=== PATIENT | female | born 1990 | race Caucasian/White ===

== ENCOUNTER 2023-07-27 11:34 | Inpatient (IN) | payer MEDICAID, OTHER ==
[~2023-07-27] VITALS: Ht 167.6 cm; Wt 59.4 kg
[2023-07-27 12:05] LABS: PH,URINE DRUG SCREEN 5.5 (5.0-8.0)
[2023-07-27 12:11] LABS: ALCOHOL, URINE DRUG SCREEN POSITIVE (NEGATIVE); AMPHET/METH SCREEN,URINE POSITIVE (NEGATIVE); BARBITURATE SCREEN, URINE NEGATIVE (NEGATIVE); BENZODIAZEPINES SCREEN,URINE NEGATIVE (NEGATIVE); CANNABINOID SCREEN,URINE POSITIVE (NEGATIVE); COCAINE SCREEN,URINE NEGATIVE (NEGATIVE); METHADONE SCREEN, URINE NEGATIVE (NEGATIVE); OPIATE SCREEN,URINE NEGATIVE (NEGATIVE); PHENCYCLIDINE SCREEN,URINE NEGATIVE (NEGATIVE)
[2023-07-27 12:36] LABS: BASOPHILS % (AUTO) 0.6 % (0.0-2.0); EOSINOPHILS % (AUTO) 0.7 % (1.0-6.0); HEMATOCRIT 35.1 % (36-46); HEMOGLOBIN 11.4 g/dL (12.0-16.0); LYMPHOCYTES # (AUTO) 2.3 K/uL (1.0-4.8); LYMPHOCYTES % (AUTO) 39.9 % (22.0-44.0); MEAN CORPUSCULAR HEMOGLOBIN 30.1 pg (26.0-34.0); MEAN CORPUSCULAR HGB CONC 32.5 G/dL (31.0-37.0); MEAN CORPUSCULAR VOLUME 93 fL (80-100); MONOCYTES # (AUTO) 0.3 K/uL (0.1-1.0); MONOCYTES % (AUTO) 5.6 % (2.0-9.0); NEUTROPHILS # (AUTO) 3.1 K/uL (1.8-7.7); NEUTROPHILS % (AUTO) 53.2 % (40.0-70.0); PLATELET COUNT (AUTO) 251 K/uL (150-450); RED CELL DISTRIBUTION WIDTH 14.4 % (11.5-14.5); WHITE BLOOD COUNT (AUTO) 5.8 K/uL (4.5-11.0)
[2023-07-27 12:43] LABS: ANION GAP 10 mmol/L (8-16); CALCIUM, TOTAL 8.4 mg/dL (8.8-10.5); CARBON DIOXIDE 26 mmol/L (22-29); CHLORIDE 106 mmol/L (98-107); CREATININE 0.62 mg/dL (0.60-1.30); GLOMERULAR FILTR. RATE CALC > 60 mL/min (>60); GLUCOSE,RANDOM 86 mg/dL (70-110); POTASSIUM 3.7 mmol/L (3.5-5.1); SODIUM SERUM 142 mmol/L (136-145); UREA NITROGEN, BLOOD 17 mg/dL (7-18)
[2023-07-27 12:49] LABS: ALANINE AMINOTRANSFERASE 19 U/L (12-78); ALBUMIN 3.2 g/dL (3.4-5.0); ALKALINE PHOSPHATASE 61 U/L (46-116); ASPARTATE AMINOTRANSFERASE 44 U/L (15-37); BILIRUBIN,TOTAL 0.2 mg/dL (0.1-1.0); TOTAL PROTEIN, SERUM 6.4 g/dL (6.4-8.2)
[2023-07-27 12:51] LABS: ALCOHOL, BLOOD (SERUM) 57 mg/dL (0-10)
[2023-07-27 18:02] LABS: COVID AG,FIA SOURCE NASAL SWAB
[2023-07-27 18:17] LABS: SARS-COV2 (COVID) ANTIGEN,FIA Negative (Negative)
[2023-07-28 01:37] VITALS: BP 103/66; PULSE 98; RESP 18; TEMP 97.5; O2SAT 98
[2023-07-28 08:10] VITALS: RESP 16
[2023-07-28] MEDS ORDERED: ChlorproMAZINE HCL 50 MG/2 ML AMP ONE (12:42)
[2023-07-28] MEDS ORDERED: LORazepam 2 MG/ML VIAL ONE (12:42)
[2023-07-28] MEDS ORDERED: DiphenhydrAMINE HCL 50 MG/ML VIAL IM ONE (12:45)
[2023-07-28] MEDS ORDERED: ChlorproMAZINE HCL 50 MG/2 ML AMP IM ONE (12:45)
[2023-07-28] MEDS ORDERED: LORazepam 2 MG/ML VIAL IM ONE (12:45)
[2023-07-28] MEDS ORDERED: DOCUSATE SODIUM 100 MG CAPSULE PO PRN (16:15)
[2023-07-28] MEDS ORDERED: GuaiFENesin/D-METHORPHAN [SUGAR-FREE] 200-20MG/10 ML SYRUP UDCUP PO PRN (16:15)
[2023-07-28] MEDS ORDERED: PETROLATUM,WHITE 28 GM JELLY TP PRN (16:15)
[2023-07-28] MEDS ORDERED: LOPERAMIDE HCL 2 MG CAPSULE PO PRN (16:15)
[2023-07-28] MEDS ORDERED: IBUPROFEN 400 MG TABLET PO PRN (16:15)
[2023-07-28] MEDS ORDERED: ALBUTEROL SULFATE HFA 90 MCG/PUFF 8 GM INHALER IH PRN (16:15)
[2023-07-28] MEDS ORDERED: ONDANSETRON HCL 4 MG TABLET PO PRN (16:15)
[2023-07-28] MEDS ORDERED: CloNIDine HCL 0.1 MG TABLET PO PRN (16:15)
[2023-07-28 20:03] VITALS: RESP 17; TEMP 97.6
[2023-07-28] MEDS: QUEtiapine FUMARATE 200 MG TABLET PO SCH (21:00)
[2023-07-29 08:31] VITALS: RESP 16; TEMP 98.4
[2023-07-29] MEDS: MAGNESIUM HYDROXIDE SUSPENSION 30 ML UDCUP PO PRN (16:37)
[2023-07-29 20:00] VITALS: BP 97/58; PULSE 83; RESP 18; TEMP 97.8; O2SAT 98
[2023-07-29] MEDS: QUEtiapine FUMARATE 200 MG TABLET PO SCH (20:48)
[2023-07-30] MEDS: ZOLPIDEM TARTRATE 10 MG TABLET PO PRN ×2 (00:20→20:16)
[2023-07-30 08:09] VITALS: BP 99/57; PULSE 82; RESP 18; TEMP 97.9; O2SAT 96
[2023-07-30] MEDS: LORazepam 2 MG TABLET PO PRN ×3 (09:54→20:33)
[2023-07-30] MEDS: QUEtiapine FUMARATE 100 MG TABLET PO PRN (15:51)
[2023-07-30] MEDS: QUEtiapine FUMARATE 200 MG TABLET PO SCH (20:17)
[2023-07-30 21:04] VITALS: BP 108/60; PULSE 96; RESP 17; TEMP 97.8; O2SAT 100
[2023-07-31] MEDS: LORazepam 2 MG TABLET PO PRN ×2 (02:58→08:09)
[2023-07-31 09:26] VITALS: RESP 18
[2023-07-31] MEDS ORDERED: HALOPERIDOL LACTATE 5 MG/ML VIAL ONE (13:33)
[2023-07-31] MEDS ORDERED: DiphenhydrAMINE HCL 50 MG/ML VIAL ONE (13:33)
[2023-07-31] MEDS ORDERED: LORazepam 2 MG/ML VIAL ONE (13:33)
[2023-07-31] MEDS ORDERED: DiphenhydrAMINE HCL 50 MG/ML VIAL IM ONE (13:45)
[2023-07-31] MEDS ORDERED: HALOPERIDOL LACTATE 5 MG/ML VIAL IM ONE (13:45)
[2023-07-31] MEDS ORDERED: LORazepam 2 MG/ML VIAL IM ONE (13:45)
[2023-07-31] MEDS: QUEtiapine FUMARATE 200 MG TABLET PO SCH (21:00)
[2023-08-01] MEDS ORDERED: DiphenhydrAMINE HCL 50 MG/ML VIAL ONE (07:47)
[2023-08-01] MEDS ORDERED: HALOPERIDOL LACTATE 5 MG/ML VIAL ONE (07:47)
[2023-08-01] MEDS ORDERED: LORazepam 2 MG/ML VIAL ONE (07:47)
[2023-08-01] MEDS ORDERED: LORazepam 2 MG/ML VIAL IM ONE (08:00)
[2023-08-01] MEDS ORDERED: HALOPERIDOL LACTATE 5 MG/ML VIAL IM ONE (08:00)
[2023-08-01] MEDS ORDERED: DiphenhydrAMINE HCL 50 MG/ML VIAL IM ONE (08:00)
[2023-08-01] MEDS: QUEtiapine FUMARATE 100 MG TABLET PO PRN (20:01)
[2023-08-01] MEDS: QUEtiapine FUMARATE 200 MG TABLET PO SCH (20:02)
[2023-08-01 20:03] VITALS: BP 112/60; PULSE 98; RESP 18; TEMP 97.8; O2SAT 98
[2023-08-02 08:29] VITALS: RESP 17
[2023-08-02] MEDS: LORazepam 2 MG TABLET PO PRN ×2 (08:59→18:49)
[2023-08-02 20:18] VITALS: BP 119/58; PULSE 88; RESP 17; TEMP 97.8; O2SAT 99
[2023-08-02] MEDS: ZOLPIDEM TARTRATE 10 MG TABLET PO PRN (21:06)
[2023-08-02] MEDS: QUEtiapine FUMARATE 200 MG TABLET PO SCH (21:06)
[2023-08-03 05:16] LABS: GLUCOMETER DEV NAME(LOC) BV3S.; GLUCOSE,POINT OF CARE 97 MG/DL (70-110)
[2023-08-03] MEDS: MULTIVITAMINS, THERAPEUTIC TABLET PO SCH (08:19)
[2023-08-03] MEDS: FOLIC ACID 1 MG TABLET PO SCH ×2 (08:19→08:44)
[2023-08-03 08:34] VITALS: BP 119/86; PULSE 76; RESP 18; TEMP 98; O2SAT 98
[2023-08-03] MEDS: THIAMINE 100 MG TABLET PO SCH (08:44)
[2023-08-03] MEDS: LORazepam 2 MG TABLET PO PRN (08:45)
[2023-08-03] MEDS ORDERED: LORazepam 2 MG/ML VIAL ONE (13:24)
[2023-08-03] MEDS ORDERED: HALOPERIDOL LACTATE 5 MG/ML VIAL ONE (13:24)
[2023-08-03] MEDS ORDERED: DiphenhydrAMINE HCL 50 MG/ML VIAL ONE (13:24)
[2023-08-03] MEDS ORDERED: LORazepam 2 MG/ML VIAL IM ONE (13:30)
[2023-08-03] MEDS ORDERED: DiphenhydrAMINE HCL 50 MG/ML VIAL IM ONE (13:30)
[2023-08-03] MEDS ORDERED: HALOPERIDOL LACTATE 5 MG/ML VIAL IM ONE (13:30)
[2023-08-03 20:30] VITALS: BP 113/63; PULSE 86; RESP 18; TEMP 97.4; O2SAT 100
[2023-08-03] MEDS: ZOLPIDEM TARTRATE 10 MG TABLET PO PRN (20:31)
[2023-08-03] MEDS: QUEtiapine FUMARATE 200 MG TABLET PO SCH (20:31)
[2023-08-04 08:12] VITALS: BP 119/76; PULSE 83; RESP 16; TEMP 97.9; O2SAT 98
[2023-08-04] MEDS: THIAMINE 100 MG TABLET PO SCH (08:12)
[2023-08-04] MEDS: FOLIC ACID 1 MG TABLET PO SCH (08:12)
[2023-08-04] MEDS: MULTIVITAMINS, THERAPEUTIC TABLET PO SCH (08:12)
[2023-08-04] MEDS: LORazepam 2 MG TABLET PO PRN ×2 (08:13→16:11)
[2023-08-04] MEDS ORDERED: DiphenhydrAMINE HCL 50 MG/ML VIAL IM ONE (08:45)
[2023-08-04] MEDS ORDERED: LORazepam 2 MG/ML VIAL IM ONE (08:45)
[2023-08-04] MEDS ORDERED: ChlorproMAZINE HCL 50 MG/2 ML AMP IM ONE (08:45)
[2023-08-04] MEDS: QUEtiapine FUMARATE 200 MG TABLET PO SCH ×2 (12:38→20:13)
[2023-08-04] MEDS: MAG HYDROX/AL HYDROX/SIMETH ES 30 ML SUSPENSION UDCUP PO PRN (16:11)
[2023-08-04 20:03] VITALS: RESP 17; TEMP 97.6
[2023-08-04] MEDS: ZOLPIDEM TARTRATE 10 MG TABLET PO PRN (20:13)
[2023-08-05] MEDS: MAG HYDROX/AL HYDROX/SIMETH ES 30 ML SUSPENSION UDCUP PO PRN ×2 (06:28→15:22)
[2023-08-05 08:02] VITALS: RESP 16; TEMP 97.9
[2023-08-05] MEDS: THIAMINE 100 MG TABLET PO SCH (08:18)
[2023-08-05] MEDS: QUEtiapine FUMARATE 200 MG TABLET PO SCH ×2 (08:18→20:00)
[2023-08-05] MEDS: FOLIC ACID 1 MG TABLET PO SCH (08:18)
[2023-08-05] MEDS: MULTIVITAMINS, THERAPEUTIC TABLET PO SCH (08:19)
[2023-08-05] MEDS: LORazepam 2 MG TABLET PO PRN ×2 (08:19→15:27)
[2023-08-05] MEDS ORDERED: ChlorproMAZINE HCL 50 MG/2 ML AMP ONE (08:50)
[2023-08-05] MEDS ORDERED: DiphenhydrAMINE HCL 50 MG/ML VIAL ONE (08:50)
[2023-08-05] MEDS ORDERED: ChlorproMAZINE HCL 50 MG/2 ML AMP IM ONE (09:15)
[2023-08-05] MEDS ORDERED: DiphenhydrAMINE HCL 50 MG/ML VIAL IM ONE (09:15)
[2023-08-05] MEDS: MAGNESIUM HYDROXIDE SUSPENSION 30 ML UDCUP PO PRN (16:27)
[2023-08-05] MEDS: NICOTINE 14 MG/24 HOUR PATCH TD PRN (17:32)
[2023-08-05 20:00] VITALS: BP 96/60; PULSE 93; RESP 18; TEMP 97.4; O2SAT 100
[2023-08-06] MEDS: ZOLPIDEM TARTRATE 10 MG TABLET PO PRN ×2 (00:16→21:38)
[2023-08-06] MEDS: MAG HYDROX/AL HYDROX/SIMETH ES 30 ML SUSPENSION UDCUP PO PRN (01:20)
[2023-08-06] MEDS ORDERED: LORazepam 2 MG/ML VIAL ONE (02:59)
[2023-08-06] MEDS ORDERED: DiphenhydrAMINE HCL 50 MG/ML VIAL ONE (03:00)
[2023-08-06] MEDS ORDERED: HALOPERIDOL LACTATE 5 MG/ML VIAL ONE (03:00)
[2023-08-06] MEDS ORDERED: HALOPERIDOL LACTATE 5 MG/ML VIAL IM ONE ×2 (03:15→14:30)
[2023-08-06] MEDS ORDERED: DiphenhydrAMINE HCL 50 MG/ML VIAL IM ONE ×2 (03:15→14:30)
[2023-08-06] MEDS ORDERED: LORazepam 2 MG/ML VIAL IM ONE ×2 (03:15→14:30)
[2023-08-06 08:00] VITALS: BP 100/63; PULSE 94; RESP 18; TEMP 97.1; O2SAT 99
[2023-08-06] MEDS: FOLIC ACID 1 MG TABLET PO SCH (08:11)
[2023-08-06] MEDS: THIAMINE 100 MG TABLET PO SCH (08:11)
[2023-08-06] MEDS: QUEtiapine FUMARATE 200 MG TABLET PO SCH ×3 (08:11→21:43)
[2023-08-06] MEDS: MULTIVITAMINS, THERAPEUTIC TABLET PO SCH (08:11)
[2023-08-06] MEDS: NICOTINE 14 MG/24 HOUR PATCH TD PRN (14:52)
[2023-08-06 20:00] VITALS: BP 96/57; PULSE 89; RESP 18; TEMP 97.3; O2SAT 99
[2023-08-07 08:18] VITALS: BP 118/79; PULSE 83; RESP 18; TEMP 98; O2SAT 98
[2023-08-07] MEDS: NICOTINE 14 MG/24 HOUR PATCH TD PRN (08:33)
[2023-08-07] MEDS: THIAMINE 100 MG TABLET PO SCH (08:33)
[2023-08-07] MEDS: FOLIC ACID 1 MG TABLET PO SCH (08:33)
[2023-08-07] MEDS: QUEtiapine FUMARATE 200 MG TABLET PO SCH ×2 (08:33→20:25)
[2023-08-07] MEDS: LORazepam 2 MG TABLET PO PRN ×2 (08:33→17:18)
[2023-08-07] MEDS: MULTIVITAMINS, THERAPEUTIC TABLET PO SCH (08:34)
[2023-08-07] MEDS: MAG HYDROX/AL HYDROX/SIMETH ES 30 ML SUSPENSION UDCUP PO PRN (18:08)
[2023-08-07 20:35] VITALS: BP 103/61; PULSE 100; RESP 18; TEMP 98; O2SAT 97
[2023-08-07] MEDS ORDERED: SENNOSIDES 8.6 MG TABLET PO PRN (21:00)
[2023-08-07] MEDS: ZOLPIDEM TARTRATE 10 MG TABLET PO PRN (21:01)
[2023-08-08] MEDS: MAG HYDROX/AL HYDROX/SIMETH ES 30 ML SUSPENSION UDCUP PO PRN ×3 (02:43→20:38)
[2023-08-08] MEDS ORDERED: HALOPERIDOL LACTATE 5 MG/ML VIAL ONE (04:41)
[2023-08-08] MEDS ORDERED: LORazepam 2 MG/ML VIAL IM ONE (04:45)
[2023-08-08] MEDS ORDERED: DiphenhydrAMINE HCL 50 MG/ML VIAL IM ONE (04:45)
[2023-08-08] MEDS ORDERED: HALOPERIDOL LACTATE 5 MG/ML VIAL IM ONE (04:45)
[2023-08-08 08:05] VITALS: BP 119/84; PULSE 82; RESP 18; TEMP 98; O2SAT 99
[2023-08-08] MEDS: MULTIVITAMINS, THERAPEUTIC TABLET PO SCH (09:28)
[2023-08-08] MEDS: FOLIC ACID 1 MG TABLET PO SCH (09:28)
[2023-08-08] MEDS: QUEtiapine FUMARATE 200 MG TABLET PO SCH ×2 (09:28→21:00)
[2023-08-08] MEDS: THIAMINE 100 MG TABLET PO SCH (09:28)
[2023-08-08 12:10] VITALS: RESP 18
[2023-08-08] MEDS: ACETAMINOPHEN 325 MG TABLET PO PRN (12:10)
[2023-08-08] MEDS: LORazepam 2 MG TABLET PO PRN (12:15)
[2023-08-09 02:31] VITALS: RESP 16
[2023-08-09 08:25] VITALS: BP 112/69; PULSE 79; RESP 18; TEMP 98; O2SAT 99
[2023-08-09] MEDS: FOLIC ACID 1 MG TABLET PO SCH (08:33)
[2023-08-09] MEDS: LORazepam 2 MG TABLET PO PRN ×2 (08:33→17:25)
[2023-08-09] MEDS: THIAMINE 100 MG TABLET PO SCH (08:33)
[2023-08-09] MEDS: MULTIVITAMINS, THERAPEUTIC TABLET PO SCH (08:33)
[2023-08-09] MEDS: QUEtiapine FUMARATE 200 MG TABLET PO SCH ×2 (08:33→21:49)
[2023-08-09] MEDS: MAG HYDROX/AL HYDROX/SIMETH ES 30 ML SUSPENSION UDCUP PO PRN (08:34)
[2023-08-09] MEDS: MAGNESIUM HYDROXIDE SUSPENSION 30 ML UDCUP PO PRN (16:34)
[2023-08-09] MEDS: ACETAMINOPHEN 325 MG TABLET PO PRN (17:25)
[2023-08-09] MEDS: QUEtiapine FUMARATE 100 MG TABLET PO PRN (17:25)
[2023-08-09 20:22] VITALS: BP 101/64; PULSE 90; RESP 18; TEMP 98.1; O2SAT 98
[2023-08-09] MEDS: ZOLPIDEM TARTRATE 10 MG TABLET PO PRN (21:49)
[2023-08-10] MEDS: LORazepam 2 MG TABLET PO PRN ×2 (03:19→06:44)
[2023-08-10] MEDS: MAG HYDROX/AL HYDROX/SIMETH ES 30 ML SUSPENSION UDCUP PO PRN (03:59)
[2023-08-10 08:03] VITALS: RESP 20; TEMP 98
[2023-08-10] MEDS: MULTIVITAMINS, THERAPEUTIC TABLET PO SCH (08:28)
[2023-08-10] MEDS: THIAMINE 100 MG TABLET PO SCH (08:28)
[2023-08-10] MEDS: FOLIC ACID 1 MG TABLET PO SCH (08:28)
[2023-08-10] MEDS: QUEtiapine FUMARATE 200 MG TABLET PO SCH ×2 (08:28→20:04)
[2023-08-10] MEDS ORDERED: HALOPERIDOL LACTATE 5 MG/ML VIAL ONE (13:10)
[2023-08-10] MEDS ORDERED: LORazepam 2 MG/ML VIAL ONE (13:10)
[2023-08-10] MEDS ORDERED: DiphenhydrAMINE HCL 50 MG/ML VIAL ONE (13:11)
[2023-08-10] MEDS ORDERED: HALOPERIDOL LACTATE 5 MG/ML VIAL IM ONE (13:30)
[2023-08-10] MEDS ORDERED: LORazepam 2 MG/ML VIAL IM ONE (13:30)
[2023-08-10] MEDS ORDERED: DiphenhydrAMINE HCL 50 MG/ML VIAL IM ONE (13:30)
[2023-08-10] MEDS: ZOLPIDEM TARTRATE 10 MG TABLET PO PRN (20:04)
[2023-08-10 20:20] VITALS: RESP 18
[2023-08-11] MEDS: THIAMINE 100 MG TABLET PO SCH (08:06)
[2023-08-11] MEDS: QUEtiapine FUMARATE 100 MG TABLET PO PRN (08:06)
[2023-08-11] MEDS: MULTIVITAMINS, THERAPEUTIC TABLET PO SCH (08:06)
[2023-08-11] MEDS: FOLIC ACID 1 MG TABLET PO SCH (08:06)
[2023-08-11] MEDS: QUEtiapine FUMARATE 200 MG TABLET PO SCH (08:07)
[2023-08-11 08:13] VITALS: BP 95/60; PULSE 91; RESP 18; TEMP 97.7; O2SAT 96
[2023-08-11] MEDS ORDERED: QUET200T30 PO (08:47)
== END 2023-08-11 13:00 | disposition home or self-care (01) | DRG 753 ==
LOC: EMS 11:39 → B3A 18:30
PROVIDERS: ADMIT Psychiatry & Neurology Psychiatry; ATTEND Psychiatry & Neurology Psychiatry
DX: F31.2 Bipolar disorder, current episode manic severe with psychotic features (principal); D64.9 Anemia, unspecified; F10.10 Alcohol abuse, uncomplicated; Z20.822 Contact with and (suspected) exposure to COVID-19; F15.10 Other stimulant abuse, uncomplicated; Z79.899 Other long term (current) drug therapy
CPT/HCPCS: 80053; 80307; 82962; 85025; G0480; J1200; J1630; J2060; J3230

== ENCOUNTER 2024-12-29 02:57 | Inpatient (IN) | payer MEDICAID ==
[~2024-12-29] VITALS: Ht 165.1 cm; Wt 61.7 kg
[2024-12-29] MEDS ORDERED: ZOLPIDEM TARTRATE 10 MG TABLET PO PRN ×2 (16:30→21:45)
[2024-12-29] MEDS ORDERED: HALOPERIDOL 5 MG TABLET PO PRN (21:45)
[2024-12-29] MEDS ORDERED: LORazepam 2 MG TABLET PO PRN (21:45)
[2024-12-29 22:49] VITALS: BP 134/74; PULSE 81; RESP 16; TEMP 98.1; O2SAT 99
[2024-12-30] MEDS ORDERED: GuaiFENesin/D-METHORPHAN [SUGAR-FREE] 200-20MG/10 ML SYRUP UDCUP PO PRN (07:00)
[2024-12-30] MEDS ORDERED: NICOTINE 14 MG/24 HOUR PATCH TD PRN (07:00)
[2024-12-30] MEDS ORDERED: MAG HYDROX/ALUMINUM HYD/SIMETH ES 30 ML SUSPENSION UDCUP PO PRN (07:00)
[2024-12-30] MEDS ORDERED: DOCUSATE SODIUM 100 MG CAPSULE PO PRN (07:00)
[2024-12-30] MEDS ORDERED: ALBUTEROL SULFATE HFA 90 MCG/PUFF 8 GM INHALER IH PRN (07:00)
[2024-12-30] MEDS ORDERED: ONDANSETRON 4 MG TABLET PO PRN (07:00)
[2024-12-30] MEDS ORDERED: MAGNESIUM HYDROXIDE SUSPENSION 30 ML UDCUP PO PRN (07:00)
[2024-12-30] MEDS ORDERED: ACETAMINOPHEN 325 MG TABLET PO PRN (07:00)
[2024-12-30] MEDS ORDERED: PETROLATUM,WHITE 28 GM JELLY TP PRN (07:00)
[2024-12-30] MEDS ORDERED: LOPERAMIDE HCL 2 MG CAPSULE PO PRN (07:00)
[2024-12-30] MEDS ORDERED: CloNIDine HCL 0.1 MG TABLET PO PRN (07:00)
[2024-12-30] MEDS: LORazepam 2 MG TABLET PO PRN (08:12)
[2024-12-30] MEDS: HALOPERIDOL 5 MG TABLET PO PRN (08:13)
[2024-12-30 08:24] VITALS: BP 110/64; PULSE 85; RESP 17; TEMP 97.1; O2SAT 99
[2024-12-30] MEDS: QUEtiapine FUMARATE 200 MG TABLET PO SCH (10:04)
[2024-12-30 20:12] VITALS: BP 94/55; PULSE 87; RESP 20; TEMP 97.4; O2SAT 98
[2024-12-31 08:32] VITALS: BP 98/57; PULSE 99; RESP 19; TEMP 97.3; O2SAT 98
[2024-12-31] MEDS ORDERED: HALOPERIDOL LACTATE 5 MG/ML VIAL ONE (10:36)
[2024-12-31] MEDS ORDERED: DiphenhydrAMINE HCL 50 MG/ML VIAL ONE (10:36)
[2024-12-31] MEDS ORDERED: LORazepam 2 MG/ML VIAL ONE (10:36)
[2024-12-31] MEDS: HALOPERIDOL LACTATE 5 MG/ML VIAL IM ONE (11:24)
[2024-12-31] MEDS: LORazepam 2 MG/ML VIAL IM ONE (11:24)
[2024-12-31] MEDS: DiphenhydrAMINE HCL 50 MG/ML VIAL IM ONE (11:24)
[2024-12-31] MEDS: ETHYL ALCOHOL 62% ANTISEPTIC NASAL SANITIZER 0.6 ML AMPUL NASAL ONE (16:32)
[2024-12-31] MEDS: BACITRACIN 28 GM OINTMENT TP SCH (16:33)
[2024-12-31] MEDS: CHLORHEXIDINE GLUCONATE 2% TOWELETTE [2'S/6'S] TP SCH (20:31)
[2024-12-31 21:29] VITALS: RESP 18; TEMP 97; O2SAT 98
[2025-01-01 07:51] LABS: HEMOGLOBIN A1C 5.3 % (3.8-5.6)
[2025-01-01 08:10] LABS: CHOL/HDL RATIO 3.1 (3.9-5.7); THYROID STIMULATING HORMONE 0.65 uIU/mL (0.36-3.74)
[2025-01-01 08:20] VITALS: BP 104/67; PULSE 100; RESP 18; TEMP 98; O2SAT 97
[2025-01-01] MEDS: ETHYL ALCOHOL 62% ANTISEPTIC NASAL SANITIZER 0.6 ML AMPUL NASAL SCH (09:05)
== END 2025-01-01 10:22 | disposition left against medical advice (07) | DRG 753 ==
LOC: B3A 21:38
PROVIDERS: ADMIT Psychiatry & Neurology Psychiatry; ATTEND Psychiatry & Neurology Psychiatry
PROC: GZ56ZZZ Individual Psychotherapy, Supportive (ICD-10-PCS; principal; 2024-12-30)
DX: F31.2 Bipolar disorder, current episode manic severe with psychotic features (principal); F12.10 Cannabis abuse, uncomplicated; Z53.29 Procedure and treatment not carried out because of patient's decision for other reasons; F41.9 Anxiety disorder, unspecified; F15.10 Other stimulant abuse, uncomplicated; G47.00 Insomnia, unspecified; Z79.899 Other long term (current) drug therapy; Z91.199 Patient's noncompliance with other medical treatment and regimen due to unspecified reason
CPT/HCPCS: 80061; 83036; 84443; 87081; J1200; J1630; J2060

== ENCOUNTER → 2024-12-29 | Emergency (ER) | payer MEDICAID, OTHER ==
[~2024-12-29] VITALS: Ht 167.6 cm; Wt 61.8 kg
[~2024-12-29] MED LIST: QUET200T PO
[2024-12-29 05:06] VITALS: TEMP 98.1
[2024-12-29 05:21] LABS: BASOPHILS % (AUTO) 0.5 % (0.0-2.0); EOSINOPHILS % (AUTO) 1.5 % (1.0-6.0); HEMATOCRIT 32.6 % (36-46); HEMOGLOBIN 10.5 g/dL (12.0-16.0); LYMPHOCYTES # (AUTO) 1.4 K/uL (1.0-4.8); LYMPHOCYTES % (AUTO) 26.1 % (22.0-44.0); MEAN CORPUSCULAR HEMOGLOBIN 29.6 pg (26.0-34.0); MEAN CORPUSCULAR HGB CONC 32.2 G/dL (31.0-37.0); MEAN CORPUSCULAR VOLUME 92 fL (80-100); MONOCYTES # (AUTO) 0.5 K/uL (0.1-1.0); MONOCYTES % (AUTO) 9.4 % (2.0-9.0); NEUTROPHILS # (AUTO) 3.3 K/uL (1.8-7.7); NEUTROPHILS % (AUTO) 62.5 % (40.0-70.0); PLATELET COUNT (AUTO) 191 K/uL (150-450); RED BLOOD CELL COUNT(AUTO) 3.55 MIL/uL (4.00-5.20); WHITE BLOOD COUNT (AUTO) 5.2 K/uL (4.5-11.0)
[2024-12-29 05:28] LABS: ANION GAP 3 mmol/L (8-16); CALCIUM, TOTAL 8.6 mg/dL (8.8-10.5); CARBON DIOXIDE 32 mmol/L (22-29); CHLORIDE 108 mmol/L (98-107); CREATININE 0.63 mg/dL (0.60-1.30); GLOMERULAR FILTR. RATE CALC > 60 mL/min (>60); GLUCOSE,RANDOM 88 mg/dL (70-110); POTASSIUM 4.4 mmol/L (3.5-5.1); SODIUM SERUM 143 mmol/L (136-145); UREA NITROGEN, BLOOD 18 mg/dL (7-18)
[2024-12-29 05:36] LABS: ALCOHOL, BLOOD (SERUM) < 3 mg/dL (0-10)
[2024-12-29 05:36] LABS: COVID AG,FIA SOURCE NASAL SWAB
[2024-12-29 05:57] LABS: SARS-COV2 (COVID) ANTIGEN,FIA Negative (Negative)
[2024-12-29 08:13] LABS: HCG,QUANTITATIVE < 1 mIU/mL (0-6)
[2024-12-29] MEDS: KETOROLAC TROMETHAMINE 60 MG/2 ML VIAL IM ONE (09:47)
[2024-12-29] MEDS: METHOCARBAMOL 500 MG TABLET PO ONE (09:47)
[2024-12-29 13:00] VITALS: BP 113/65; PULSE 85; RESP 18; O2SAT 100
[2024-12-29] MEDS: HALOPERIDOL 5 MG TABLET PO ONE (13:38)
[2024-12-29] MEDS: DiphenhydrAMINE HCL 25 MG CAPSULE PO ONE (13:38)
[2024-12-29] MEDS: LORazepam 1 MG TABLET PO ONE (13:38)
== END | disposition home or self-care (01) ==
LOC: EMS 04:50
DX: M79.651 Pain in right thigh (principal); F17.210 Nicotine dependence, cigarettes, uncomplicated; F15.90 Other stimulant use, unspecified, uncomplicated; R44.0 Auditory hallucinations; Z20.822 Contact with and (suspected) exposure to COVID-19
CPT/HCPCS: 99285; 72131; 87426; 80048; 84702; 85025; 36415; 96372; J1885; G0480

== ENCOUNTER 2025-03-20 14:03 | Emergency (ER) | payer MEDICAID, OTHER ==
[~2025-03-20] VITALS: Ht 167.6 cm; Wt 66.5 kg
[~2025-03-20 14:03] MED LIST changes: -QUET200T PO; +QUET300T19 PO
[2025-03-20 15:34] VITALS: TEMP 98.2
[2025-03-20 15:41] LABS: COVID AG,FIA SOURCE NASAL SWAB
[2025-03-20 15:43] LABS: BASOPHILS % (AUTO) 0.5 % (0.0-2.0); EOSINOPHILS % (AUTO) 0.1 % (1.0-6.0); HEMATOCRIT 34.1 % (36-46); HEMOGLOBIN 11.4 g/dL (12.0-16.0); LYMPHOCYTES # (AUTO) 1.6 K/uL (1.0-4.8); LYMPHOCYTES % (AUTO) 18.6 % (22.0-44.0); MEAN CORPUSCULAR HEMOGLOBIN 29.7 pg (26.0-34.0); MEAN CORPUSCULAR HGB CONC 33.3 G/dL (31.0-37.0); MEAN CORPUSCULAR VOLUME 89 fL (80-100); MONOCYTES # (AUTO) 0.9 K/uL (0.1-1.0); MONOCYTES % (AUTO) 9.9 % (2.0-9.0); NEUTROPHILS # (AUTO) 6.2 K/uL (1.8-7.7); NEUTROPHILS % (AUTO) 70.9 % (40.0-70.0); PLATELET COUNT (AUTO) 285 K/uL (150-450); RED BLOOD CELL COUNT(AUTO) 3.83 MIL/uL (4.00-5.20); RED CELL DISTRIBUTION WIDTH 16.1 % (11.5-14.5); WHITE BLOOD COUNT (AUTO) 8.7 K/uL (4.5-11.0)
[2025-03-20 15:50] LABS: ANION GAP 12 mmol/L (8-16); CARBON DIOXIDE 28 mmol/L (22-29); CHLORIDE 103 mmol/L (98-107); CREATININE 0.86 mg/dL (0.60-1.30); GLOMERULAR FILTR. RATE CALC > 60 mL/min (>60); GLUCOSE,RANDOM 69 mg/dL (70-110); POTASSIUM 4.1 mmol/L (3.5-5.1); SODIUM SERUM 143 mmol/L (136-145); UREA NITROGEN, BLOOD 30 mg/dL (7-18)
[2025-03-20] MEDS: LORazepam 2 MG/ML VIAL IM ONE (15:53)
[2025-03-20] MEDS: DiphenhydrAMINE HCL 50 MG/ML VIAL IM ONE (15:54)
[2025-03-20] MEDS: HALOPERIDOL LACTATE 5 MG/ML VIAL IM ONE (15:54)
[2025-03-20 16:04] LABS: SARS-COV2 (COVID) ANTIGEN,FIA Negative (Negative)
[2025-03-20 17:15] VITALS: BP 95/61; PULSE 85; RESP 16; O2SAT 100
[2025-03-20 22:59] LABS: APPEARANCE,URINE CLEAR (CLEAR); BILIRUBIN,URINE NEGATIVE (NEGATIVE); COLOR,URINE YELLOW (YELLOW); GLUCOSE, URINE (UA) NEGATIVE (NEGATIVE); KETONES,URINE NEGATIVE (NEGATIVE); LEUKOCYTE ESTERASE ,URINE LARGE (NEGATIVE); NITRATE,URINE NEGATIVE (NEGATIVE); OCCULT BLOOD,URINE LARGE (NEGATIVE); PH,URINE 6.5 (5.0-8.0); PH,URINE DRUG SCREEN 6.5 (5.0-8.0); PROTEIN,URINE TRACE mg/dL (NEGATIVE); UROBILINOGEN,URINE <=1.0 mg/dL (<=1.0)
[2025-03-20 23:05] LABS: ALCOHOL, URINE DRUG SCREEN NEGATIVE (NEGATIVE); AMPHET/METH SCREEN,URINE POSITIVE (NEGATIVE); BARBITURATE SCREEN, URINE NEGATIVE (NEGATIVE); BENZODIAZEPINES SCREEN,URINE NEGATIVE (NEGATIVE); CANNABINOID SCREEN,URINE NEGATIVE (NEGATIVE); COCAINE SCREEN,URINE NEGATIVE (NEGATIVE); METHADONE SCREEN, URINE NEGATIVE (NEGATIVE); OPIATE SCREEN,URINE NEGATIVE (NEGATIVE); PHENCYCLIDINE SCREEN,URINE NEGATIVE (NEGATIVE)
[2025-03-20 23:10] LABS: BACTERIA,URINE Few /HPF (None Seen); SQUAMOUS EPITHELIAL CELL,UR Few /LPF (None Seen); WBC,URINE 26-50 /HPF (0-5)
== END 2025-03-21 02:00 | disposition home or self-care (01) ==
LOC: EMS 14:04
DX: F15.10 Other stimulant abuse, uncomplicated (principal); F31.9 Bipolar disorder, unspecified; F17.290 Nicotine dependence, other tobacco product, uncomplicated; Z79.899 Other long term (current) drug therapy; Z20.822 Contact with and (suspected) exposure to COVID-19
CPT/HCPCS: 99285; 87426; 80048; 81001; 85025; 87086; 36415; 96372; 80307; G0480; J1200; J1630; J2060